=== PATIENT | female | born 1985 | race Caucasian/White ===

== ENCOUNTER 2019-05-12 12:57 | Observation (INO) | END 2019-05-12 17:07 | disposition home or self-care (01) | LOC: 1NENULAB | PROVIDERS: ADMIT Advanced Practice Midwife; ATTEND Advanced Practice Midwife ==

== ENCOUNTER 2019-06-01 17:30 | Inpatient (IN) ==
[2019-06-01] MEDS ORDERED: CeFAZolin Premix DUPLEX 2,000 MG/50 ML BAG IVPB ONE (17:54)
[2019-06-01] MEDS ORDERED: Famotidine 20 MG/2 ML VIAL IVP ONE (17:54)
[2019-06-01] MEDS ORDERED: Oxytocin 20 units/ LR 1000 mL 20 UNIT/1,000 ML BAG IVC ONE (17:54)
[2019-06-01] MEDS ORDERED: Metoclopramide 10 MG/2 ML VIAL IVP ONE (17:54)
[2019-06-01] MEDS ORDERED: Ringers Solution, Lactated 1,000 ML IVC ONE (17:54)
[2019-06-01] MEDS ORDERED: Oxytocin 20 units/ LR 1000 mL 20 UNIT/1,000 ML BAG IVC SCH ×2 (18:00→23:00)
[2019-06-01] MEDS ORDERED: Ringers Solution, Lactated 1,000 ML IVC SCH (18:00)
[2019-06-01 18:36] LABS: Basophils % 0.2 %; Eosinophils % 0.3 %; Hematocrit 34.7 % (35.3-44.9); Hemoglobin 11.4 g/dL (11.5-15.4); Immature Granulocytes % 0.5 % (0-4); Lymphocytes # 1.8 K/mcL (0.6-4.6); Lymphocytes % 17.5 %; Mean Corpuscular HGB Conc 32.9 g/dL (31.6-35.5); Mean Corpuscular Volume 79.2 fL (83.0-100.0); Mean Platelet Volume 11.8 fL (9.4-12.4); Monocytes # 0.7 K/mcL (0.0-1.3); Monocytes % 6.6 %; Neutrophils # 7.6 K/mcL (1.6-8.9); Platelet Count 165 K/mcL (140-400); Red Blood Count 4.38 M/mcL (3.82-4.97); Red Cell Distribution Width 14.9 % (11.5-14.5); Segmented Neutrophils % 74.9 %; White Blood Count 10.2 K/mcL (4.3-11.1)
[2019-06-01 18:44] LABS: Amphetamine Screen,Urine Negative ng/mL (Cutoff=1000); Barbiturate Screen,Urine Negative ng/mL (Cutoff=200); Benzodiazepines Screen,Urine Negative ng/mL (Cutoff=200); Cannabinoid Screen,Urine Negative ng/mL (Cutoff = 50); Cocaine Screen,Urine Negative ng/mL (Cutoff= 300); Creatinine,Urine 237 mg/dL; Opiate Screen,Urine Negative ng/mL (Cutoff=300); Phencyclidine Screen,Urine Negative ng/mL (Cutoff=25); Protein/Creatinine Ratio,Urine 0.19 mg/mg (0.00-0.20)
[2019-06-01 18:52] LABS: Alanine Aminotransferase 9 Units/L (7-52); Aspartate Amino Transferase 18 Units/L (13-39); BUN/Creatinine Ratio 8 (6-26); Blood Urea Nitrogen 5 mg/dL (6-20); Lactate Dehydrogenase 181 Units/L (140-271); Uric Acid 5.1 mg/dL (2.3-7.6); eGFR For African Americans > 60 (> 60); eGFR For Non-African Americans > 60 (> 60)
[2019-06-01] MEDS ORDERED: Ondansetron 4 MG/2 ML VIAL IVP ONE (18:52)
[2019-06-01] MEDS ORDERED: *HR* OxyCODONE Immed Rel 5 MG TABLET PO PRN (18:52)
[2019-06-01] MEDS ORDERED: Acetaminophen IV 1,000 MG/100 ML INFUS..BTL IVPB ONE (18:52)
[2019-06-01] MEDS ORDERED: *HR* HYDROmorphone (PF) 1 MG/ML SYRINGE IVP PRN (18:52)
[2019-06-01] MEDS ORDERED: *HR* Morphine Sulfate/PF 10 MG/10 ML AMPUL ONE (19:02)
[2019-06-01] MEDS ORDERED: *HR* FentaNYL (PF) 100 MCG/2 ML VIAL ONE (19:03)
[2019-06-01] MEDS ORDERED: *HR* Promethazine 25 MG/ML VIAL IVP ONE (19:17)
[2019-06-01] MEDS ORDERED: Ondansetron 4 MG/2 ML VIAL ONE (20:12)
[2019-06-01] MEDS ORDERED: *HR* OxyCODONE/APAP 5/325 TABLET PO PRN (23:00)
[2019-06-01] MEDS ORDERED: Metoclopramide 10 MG/2 ML VIAL IVP PRN (23:00)
[2019-06-01] MEDS ORDERED: Rho Immune Globulin 1,500 UNIT SYRINGE IM ONE (23:00)
[2019-06-01] MEDS ORDERED: Acetaminophen 325 MG TABLET PO PRN (23:00)
[2019-06-01] MEDS ORDERED: Ibuprofen 600 MG TABLET PO PRN (23:00)
[2019-06-01] MEDS ORDERED: Ondansetron 4 MG/2 ML VIAL IVP PRN (23:00)
[2019-06-01] MEDS ORDERED: Sennosides 8.6 MG TABLET PO PRN (23:00)
[2019-06-02 06:36] LABS: Basophils % 0.2 %; Eosinophils % 0.2 %; Hematocrit 30.4 % (35.3-44.9); Hemoglobin 9.9 g/dL (11.5-15.4); Immature Granulocytes % 0.4 % (0-4); Lymphocytes # 1.6 K/mcL (0.6-4.6); Lymphocytes % 12.7 %; Mean Corpuscular HGB Conc 32.6 g/dL (31.6-35.5); Mean Corpuscular Hemoglobin 25.7 pg (28.0-33.3); Mean Platelet Volume 11.6 fL (9.4-12.4); Monocytes % 7.9 %; Neutrophils # 9.7 K/mcL (1.6-8.9); Platelet Count 139 K/mcL (140-400); Red Blood Count 3.85 M/mcL (3.82-4.97); Red Cell Distribution Width 14.9 % (11.5-14.5); Segmented Neutrophils % 78.6 %; White Blood Count 12.3 K/mcL (4.3-11.1)
[2019-06-02] MEDS: Prenatal Vit/FA 1 EACH TABLET PO SCH (10:37)
[2019-06-02] MEDS: Simethicone 80 MG TAB.CHEW PO PRN ×2 (18:39→21:25)
[2019-06-02] MEDS ORDERED: Rho Immune Globulin 1,500 UNIT SYRINGE IM ONE (19:15)
[2019-06-03] MEDS: Simethicone 80 MG TAB.CHEW PO PRN (07:26)
[2019-06-03] MEDS: Prenatal Vit/FA 1 EACH TABLET PO SCH (07:27)
[2019-06-03 08:02] VITALS: BP 135/97
== END 2019-06-03 13:20 | disposition home or self-care (01) | DRG 787 ==
LOC: 1NENULAB 17:35 → 1NENUOBS 22:33
PROVIDERS: ADMIT Obstetrics & Gynecology; ATTEND Obstetrics & Gynecology